=== PATIENT | female | born 1980 | race Caucasian/White ===

== ENCOUNTER 2020-05-27 09:53 | Outpatient (CLI) | payer OTHER, SELFPAY ==
--- NOTE | ~2020-05-27 | MR_ITS ---
EXAMINATION: MR cervical spine wo con EXAM DATE: 05/27/2020 10:58 INDICATION: Chronic neck pain, nausea, dizziness, right arm numbness. TECHNIQUE: Multi-sequential, multiplanar MR images of the cervical spine were obtained without contra st. Axial T2, axial T2 MERGE sequence. Sagittal T1, T2, T2 fat saturation images also obtained. Th ere is no prior study for comparison. FINDINGS: Vertebral body and disc heights are well-maintained. There are no suspicious marrow signal abnormalit ies. Paraspinal soft tissue is unremarkable. The spinal cord signal intensity and intrinsic morpholog y is normal. Cervicomedullary junction is normal in appearance. Level by level evaluation: C2-C3: Disc does not extend beyond the endplate margin. Uncovertebral joint arthropathy: None. Facet joint arthropathy: Mild right. Neural foraminal stenosis: No stenosis. Central canal stenosis: No stenosis. C3-C4: Disc does not extend beyond the endplate margin. Uncovertebral joint arthropathy: None. Facet joint arthropathy: Mild right. Neural foraminal stenosis: No stenosis. Central canal stenosis: No stenosis. C4-C5: Disc does not extend beyond the endplate margin. Uncovertebral joint arthropathy: None. Facet joint arthropathy: Mild bilateral. Neural foraminal stenosis: No stenosis. Central canal stenosis: No stenosis. C5-C6: Disc does not extend beyond the endplate margin. Uncovertebral joint arthropathy: None. Facet joint arthropathy: Mild bilateral. Neural foraminal stenosis: No stenosis. Central canal stenosis: No stenosis. C6-C7: Disc does not extend beyond the endplate margin. Uncovertebral joint arthropathy: None. Facet joint arthropathy: Mild left. Neural foraminal stenosis: No stenosis. Central canal stenosis: No stenosis. C7-T1: Disc does not extend beyond the endplate margin. Uncovertebral joint arthropathy: None. Facet joint arthropathy: Mild left. Neural foraminal stenosis: No stenosis. Central canal stenosis: No stenosis. IMPRESSION: 1. Mild facet arthropathy. Reviewed, dictated and finalized at location A. IMPRESSION: 1. Mild facet arthropathy.
== END 2020-05-27 09:54 ==
PROVIDERS: Visit Provider Nurse Practitioner Family
DX: M40.50 Lordosis, unspecified, site unspecified (principal); M50.30 Other cervical disc degeneration, unspecified cervical region; M54.10 Radiculopathy, site unspecified
CPT/HCPCS: 72141

== ENCOUNTER 2024-05-16 10:38 | Outpatient (CLI) | payer OTHER, SELFPAY ==
--- NOTE | ~2024-05-16 | US_ITS ---
Right forearm ULTRASOUND Ordering provider: Ryan Falk History: . lump RT forearm . Comparison: None. FINDINGS/impression: Complex area measuring 1.9 x 0.6 x 1.8 cm. Color flow is noted. Differential include hematoma versus cyst versus necrotic lymph node. Further evaluation and follow-u p advised. Reviewed, dictated and finalized at location A.
== END 2024-05-16 10:39 ==
LOC: MICIMG 10:41
PROVIDERS: PCP Nurse Practitioner Family
DX: R22.0 Localized swelling, mass and lump, head (principal)
CPT/HCPCS: 76882

== ENCOUNTER 2025-01-18 08:32 | Outpatient (CLI) | payer OTHER, SELFPAY ==
--- NOTE | ~2025-01-18 | CT_ITS ---
EXAMINATION: CT sinus wo con DATE: 01/18/2025 08:47 INDICATION: Sinus pressure. Dizziness. TECHNIQUE: Computed tomography (CT) of the paranasal sinuses was performed without intravenous contra st. Iterative reconstruction technique was employed. The dose-length product was 272.93 mGy-cm. COMPARISON: None FINDINGS: The frontal sinuses are clear. There is mild mucosal thickening in the posterior right ethm oid sinuses. The sphenoid and maxillary sinuses are clear. There is leftward deviation of the nasal s eptum. There are bilateral Zulma cells. The ostiomeatal units are patent. IMPRESSION: 1. Mild mucosal thickening in the posterior right ethmoid sinuses. 2. Leftward deviation of the nasal septum. Reviewed, dictated and finalized at location L.
== END 2025-01-18 08:33 | disposition home or self-care (01) ==
PROVIDERS: PCP Otolaryngology; Visit Provider Nurse Practitioner Family
DX: J32.1 Chronic frontal sinusitis (principal); R42 Dizziness and giddiness; Z98.890 Other specified postprocedural states; J34.2 Deviated nasal septum
CPT/HCPCS: 70486